=== PATIENT | female | born 1960 | race Caucasian/White ===

== ENCOUNTER 2017-01-25 10:22 | Inpatient (IN) ==
[2017-01-25] MEDS ORDERED: CeFAZolin Pre 2,000 MG/100 ML 2,000 MG/100 ML BAG IVPB ONE (10:37)
[2017-01-25] MEDS ORDERED: Lidocaine -MPF 1% 2 ML VIAL ID ONE (10:37)
[2017-01-25] MEDS ORDERED: Metoclopramide 10 MG/2 ML VIAL IVP ONE (10:38)
[2017-01-25] MEDS ORDERED: *HR* Labetalol 100 MG/20 ML MDV IVP PRN (10:38)
[2017-01-25] MEDS ORDERED: Famotidine 20 MG/2 ML VIAL IVP ONE (10:38)
[2017-01-25] MEDS ORDERED: *HR* Promethazine 25 MG/ML VIAL IVP PRN (10:38)
[2017-01-25] MEDS ORDERED: Acetaminophen IV 1,000 MG/100 ML INFUS..BTL IVPB ONE (10:40)
[2017-01-25] MEDS ORDERED: Gabapentin 300 MG CAPSULE PO STA (10:40)
--- NOTE | 2017-01-25 10:44 | Anesthesia Evaluation PreOp ---
Date of Encounter: 01/25/17 Time of Encounter: 10:41 - Past History Planned Operation: Antrectomy/Gastric resection re: Carcinoid Cardiac History: HTN (maintained on Norvasc, Lisinopril), Hyperlipidemia ( borderline - no meds) Pulmonary History: Smoker (upto 2ppd x 40yrs), COPD (maintained on Symbicort, Advair) SCHEDULE PLANNING MANAGER History: TIA ( incidental findings no S/Sx), Other (Multiple Sclerosis/ White matter changes [Dx age 26] but does not follow-up w/Neurology for Tx, Hx of Anxiety/Depression maintained on Escitalopram, Chronic Back Pain maintained on Gabapentin) Other Medical History: Other (Stomach Ca) Anesthesia History: No Prior Anesthetic Complications, Past Anesthesia (L-wrist ORIF 02/2015, L-Total Shoulder 1995,) Alcohol Use: rarely Drug use: none Medications and Allergies EPINEPHrine [Epipen] 0.3 mg IJ ONCE PRN 05/09/16 [History] Amlodipine Besylate 10 mg PO DAILY #30 tablet 10/10/16 [Rx] Budesonide/Formoterol 160/4.5 [Symbicort 160/4.5] 2 puff IH BIDR #1 inhaler [Rx] Ciprofloxacin [Cipro] 500 mg PO BID #10 tablet 10/10/16 [Rx] Diazepam [Valium] 10 mg PO TID #15 tablet 10/10/16 [Rx] Gabapentin [Neurontin] 800 mg PO TID #30 tablet 10/10/16 [Rx] Montelukast [Singulair] 10 mg PO DAILY PRN #30 tablet 10/10/16 [Rx] Omeprazole [PriLOSEC] 20 mg PO BID #60 capsule.dr 10/10/16 [Rx] Oxycodone HCl 20 mg PO Q6H PRN #10 tablet 10/10/16 [Rx] Ropinirole HCl [Requip] 0.5 mg PO HS #30 tablet 10/10/16 [Rx] Sucralfate [Carafate] 1 gm PO 0730,1630 #120 tablet 10/10/16 [Rx] Allergies No Known Allergies Allergy (Verified 10/08/16 14:28) - Meds/Allergy Pre-op Review Medications Reviewed: Yes Allergies Reviewed: Yes Beta Blockers on Current Med List: No Anesthesia Results - Labs Laboratory Tests 11/27/16 01/16/17 01/16/17 07:15 12:15 12:15 WBC 7.0 Hgb 13.3 Hct 41.4 Plt Count 177 Sodium 139 Potassium 4.2 Chloride 103 Carbon Dioxide 26 BUN 7 Creatinine 0.74 Est GFR (Non-Af Amer) > 60 Glucose 79 - Imaging EKG: image reviewed (96bpm SR) Anesthesia Exam O2 Sat Height 1.63 m Height 1.63 m Weight 53.977 kg Weight 53.977 kg O2 Sat by Pulse Oximetry 95 Vital Signs Temp Pulse Resp BP Pulse Ox 98.0 F 98 18 162/70 95 01/25/17 10:39 01/25/17 10:39 01/25/17 10:39 01/25/17 10:39 01/25/17 10:39 Height: 5'4" Weight: 119# BMI = 19 - HEENT Pupil (Motor): Pupils equal, EOMI Mallampati: II Teeth: Edentulous Denture Type: Upper: Complete, Lower: Complete Oral Opening: Greater than 3 - SCHEDULE PLANNING MANAGER LOC: Oriented SCHEDULE PLANNING MANAGER Motor: Normal RUE, Normal LUE, Normal RLE, Normal LLE, Normal Face SCHEDULE PLANNING MANAGER Sensory: Normal: RUE, LUE, RLE, LLE, Face - Cardiac Rhythm: Regular Murmur: None JVD: No - Pulmonary Breath Sounds: bilateral Clear Respiratory Effort: Symmetrical Anesthesia Assess/Plan ASA Score: 3 (Stomach Ca, HTN, Chol, Smoker, COPD, Chronic Pain, Multiple Sclerosis) Modified [place] Scale for Level of Consciousness: Cooperative, oriented, and tranquil Anesthetic Plan: General Monitoring Plan: Standard Monitors Recovery Plan: PACU Anes Supervising Prov Stmt: Pt seen/evaluated, R&B Discussed, questions answered and consent obtained. Michelle Fam MD
[2017-01-25] MEDS ORDERED: Ringers Solution, Lactated 1,000 ML IVC SCH (10:45)
[2017-01-25] MEDS ORDERED: cloNIDine HCl 0.1 MG TABLET PO ONE (10:47)
[2017-01-25] MEDS ORDERED: Albuterol 2.5 MG/3 ML NEBULIZER IH ONE (10:49)
[2017-01-25] MEDS ORDERED: Albuterol 2.5 MG/3 ML NEBULIZER ONE (10:55)
[2017-01-25] MEDS ORDERED: *HR* Rocuronium Bromide 50 MG/5 ML VIAL ONE ×2 (10:57→12:32)
[2017-01-25] MEDS ORDERED: *HR* Propofol 200 MG/20 ML VIAL IVP ONE (10:58)
[2017-01-25] MEDS ORDERED: *HR* Midazolam HCl 2 MG/2 ML VIAL ONE (10:58)
[2017-01-25] MEDS ORDERED: Lidocaine -MPF 2% 2 ML VIAL ONE (10:58)
[2017-01-25] MEDS ORDERED: *HR* FentaNYL (PF) 100 MCG/2 ML VIAL ONE (10:58)
--- NOTE | 2017-01-25 11:19 | History & Physical Report ---
Date of Encounter: 01/25/17 Time of Encounter: 11:20 24 Hour HP Update - Instructions Instructions: If the History and Physical is less than 30 days old and was completed prior to A.M. admission and or procedure and has NOT been updated on calendar day of procedure please complete this update prior to performing procedure. - Update Patient reports changes in Medical Condition: No Changes in examination, assessment, or condition: No Changes in Medication: No Preop tests/diagnostics Reviewed: Yes Surgery Remains Indicated: Yes Consent for Planned Operative Procedure(s) Verified: Yes - Pre-Operative Checklist Preoperative Checklist Indicated: Yes Prophylactic Antibiotic Ordered: Yes Home Medications Include Beta Polo: No Is VTE Prophylaxis Indicated?: Yes
[2017-01-25] MEDS ORDERED: CefOXitin 1,000 MG VIAL ONE (11:32)
[2017-01-25] MEDS ORDERED: Ketamine *HR* 500 MG/10 ML MDV ONE (12:07)
[2017-01-25] MEDS ORDERED: *HR* HYDROmorphone 2 MG/ML SYRINGE ONE (12:12)
[2017-01-25] MEDS ORDERED: Dexamethasone 4 MG/ML VIAL ONE (13:02)
[2017-01-25] MEDS ORDERED: Ondansetron 4 MG/2 ML VIAL ONE (13:02)
--- NOTE | 2017-01-25 14:11 | Operative Note ---
Date of procedure: 01/25/17 Pre-op diagnosis: Antrum carcinoid tumor Post-op diagnosis: same Procedure: Gastric resection (antrectomy) Billroth I reconstruction Anesthesia: GENET Surgeon: Kaleb Meredith Estimated blood loss (cc): 50 Specimen: Antrum Condition: stable Disposition: PACU Procedure in Detail: After informed consent the patient was taken to major operative suite placed in the supine position and given adequate general endotracheal anesthesia. The abdomen is prepped and draped in sterile fashion utilizing ChloraPrep standard draping techniques. Timeout was taken patient was identified. I made an upper midline incision. I entered the abdominal cavity. There is no evidence of metastatic disease or adenopathy. The liver was completely clear. I performed a wide Claudy maneuver all the way to the inferior vena cava this completely mobilize the duodenum and pancreatic. Since this was a 1 cm carcinoid tumor not seen on MRI or octreotide scan, I decided not to perform a radical antrectomy. I divided the omentum tissue along the greater curvature of the stomach from the pylorus to the end of the antrum using clamps and hemostatic ligatures. Once the greater curvature was completely free completely and in the lesser sac. This allowed me to identify the incision were and moved up about 3-4 cm to allow for complete antrectomy I divided the tissue on the lesser omentum between the pylorus and this identified area on the lesser curvature. Tissue is divided between clamps and hemostatic ligatures. I then made a careful examination further tumor. The tumor was not in the expected location. The tumor was reported to be a few centimeters from the pylorus. It appeared to be 8 cm from the pylorus. I could clearly feel a tumor that correlated with the size at about 15 mm. This was marked. I then performed an antrectomy with a stapling device working from the greater curvature to the middle of the stomach and then angling up onto the lesser curvature with a second staple load. This gave me a good wide margin on the tumor. I then dissected the tissue off the backside of the pylorus and the first 1-1/2 cm of duodenum. The duodenum was then divided just past the pylorus and the specimen passed off the field. I immediately opened the specimen to identify the bleeding carcinoid and this was in the antrectomy specimen about 8 cm from the divided pylorus. Mobility on the greater curvature was excellent. I was able to perform a tension-free handsewn anastomosis. I put a backside layer of seromuscular stitches with 2-0 silk along the staple line all the way to the corner of the greater curvature staple line. I then removed the greater curvature staple line the width of the duodenum and divided staple line at this point area I then performed a mucosal closure with running locking posterior wall and running baseball stitch anterior wall 2-0 chromic. I then performed an anterior wall 2-0 silk seromuscular closure to complete the anastomosis. The remaining staple line was then imbricated with 2-0 silk. This gave an excellent technical result. I pulled a small amount of omentum from the greater curvature across the suture line and sutured this to the duodenum making sure that there would be 0 tension on anastomosis and a cover the suture line with omentum. Total blood loss was 50 mL. The abdomen was irrigated with copious amounts of antibiotic containing solution. Midline was closed with looped 0 PDS and the skin with skin clips. She tolerated the procedure well.
[2017-01-25] MEDS: *HR* HYDROmorphone (PF) 1 MG/ML SYRINGE IVP PRN ×7 (14:30→23:31)
--- NOTE | 2017-01-25 15:11 | Anesthesia Evaluation Post Op ---
Date of Encounter: 01/25/17 Time of Encounter: 15:10 - Vital Signs Vital Signs: Vital Signs/O2 Sat/Glucose, Most Current Temp Pulse Resp BP Pulse Ox 01/25/17 15:05 84 16 126/93 96 01/25/17 14:55 83 18 157/94 96 01/25/17 14:45 97.8 F 87 20 150/93 95 01/25/17 14:35 84 16 162/97 97 01/25/17 14:25 81 18 154/97 97 01/25/17 14:20 86 16 123/86 98 01/25/17 14:15 97.6 F 88 16 134/81 98 - Lungs Lungs: Clear Ascult./Percussion - Airway Airway: Non-obstructed - Cardiovascular Regular Rate - Mental Status Mental Status: Alert & Oriented, Answers Appropriately - Pain Pain Scale: 8 - Nausea Vomiting Nausea Vomiting: Not Present - Hydration Hydration: Ice chips, Alvarez catheter - Discharge PostOp Status: Transfer Patient to floor (no anesthesia complications)
[2017-01-25] MEDS ORDERED: Ondansetron 4 MG/2 ML VIAL IVP PRN (15:35)
[2017-01-25] MEDS ORDERED: 0.9 % Sodium Chloride 1,000 ML ONE (15:40)
[2017-01-25] MEDS: 0.9 % Sodium Chloride 1,000 ML IVC SCH (15:59)
[2017-01-25] MEDS ORDERED: *HR* Heparin 5,000 UNIT/ML VIAL SQ SCH (18:00)
[2017-01-25] MEDS: Nicotine 21 MG PATCH.TD24 TD SCH (19:22)
[2017-01-25] MEDS: *HR* Heparin 5,000 UNIT/ML VIAL SQ SCH (19:22)
[2017-01-25] MEDS: ceFAZolin 2,000 MG in D5% in Water 100 ML IVPB SCH (20:57)
[2017-01-26] MEDS: 0.9 % Sodium Chloride 1,000 ML IVC SCH ×3 (02:33→22:30)
[2017-01-26] MEDS: *HR* HYDROmorphone (PF) 1 MG/ML SYRINGE IVP PRN ×19 (02:34→23:25)
[2017-01-26] MEDS: ceFAZolin 2,000 MG in D5% in Water 100 ML IVPB SCH (04:07)
[2017-01-26 04:43] LABS: Basophils % 0.4 %; Hematocrit 37.5 % (35.3-44.9); Hemoglobin 12.1 g/dL (11.5-15.4); Immature Granulocytes % 0.4 % (0-4); Lymphocytes # 1.7 K/mcL (0.6-4.6); Lymphocytes % 17.2 %; Mean Corpuscular HGB Conc 32.3 g/dL (31.6-35.5); Mean Corpuscular Hemoglobin 28.4 pg (28.0-33.3); Mean Platelet Volume 10.4 fL (9.4-12.4); Monocytes # 1.2 K/mcL (0.0-1.3); Monocytes % 11.7 %; Neutrophils # 6.9 K/mcL (1.6-8.9); Platelet Count 178 K/mcL (140-400); Red Blood Count 4.26 M/mcL (3.82-4.97); Red Cell Distribution Width 19.8 % (11.5-14.5); Segmented Neutrophils % 70.3 %
[2017-01-26 04:57] LABS: BUN/Creatinine Ratio 9 (6-26); Blood Urea Nitrogen 6 mg/dL (7-20); Calcium 8.4 mg/dL (8.6-10.8); Carbon Dioxide 25 mEq/L (19-29); Chloride 106 mEq/L (98-109); Glucose 97 mg/dL (70-99); Osmolality,Calculated 292 (280-300); Potassium 4.4 mEq/L (3.5-4.5); Sodium 142 mEq/L (136-145); eGFR For African Americans > 60 (> 60); eGFR For Non-African Americans > 60 (> 60)
[2017-01-26] MEDS: *HR* Heparin 5,000 UNIT/ML VIAL SQ SCH ×2 (05:46→16:05)
[2017-01-26] MEDS: Nicotine 21 MG PATCH.TD24 TD SCH (07:15)
[2017-01-26] MEDS: *HR* LORazepam 2 MG/ML VIAL IVP PRN ×3 (07:26→21:23)
--- NOTE | 2017-01-26 13:15 | General Surgery Progress Note ---
Date of Encounter: 01/26/17 Time of Encounter: 07:20 - Assessment and Plan (1) Neuroendocrine tumor Current Visit: No Status: Acute Postoperative day #1 from an antrectomy and Billroth I reconstruction For neuroendocrine tumor of the stomach. She is experiencing increased pain due to narcotic chronic use and benzodiazepine chronic use. We will Try to continue to balance increased narcotic and benzodiazepine doses against respiratory depression Stable postoperative antrectomy Subjective Narrative: The patient is seen and evaluated on morning rounds. She is complaining of pain , however this is expected. She is on chronic narcotic pain medicine at home as well as chronic benzodiazepine which will make control of her perioperative pain more difficult. We will balance between controlling her pain and suppressing her respiratory drive the incision is clean and dry. She is otherwise stable nasogastric is functioning normally with blood-tinged bilious material in the canister Objective Vital Signs - Last 8 Hours Temp Pulse Resp BP Pulse Ox 01/26/17 11:57 99.2 F 99 16 123/77 96 01/26/17 06:58 99 F 99 14 120/75 93 01/26/17 05:35 98.7 F 72 18 130/72 93 Intake and Output 01/25/17 01/26/17 01/26/17 23:59 07:59 15:59 Intake Total 100 / 100 1100 / 1100 1000 / 1000 Output Total 575 / 575 500 / 500 Balance -475 / -475 600 / 600 1000 / 1000 Intake: IV Fluids 100 / 100 1100 / 1100 1000 / 1000 0.9 % Sodium Chloride 1, 1000 / 1000 1000 / 1000 000 ML @ 75 mls/hr IVC . [id number] [facility] Rx#: [id number] Ancef 2,000 MG In 100 / 100 100 / 100 Dextrose 5% 100 ML @ 200 mls/hr IVPB Q8H [facility] Rx#: [id number] Oral 0 / 0 Output: Catheter 575 / 575 300 / 300 Gastric Drainage 200 / 200 Other: Meal NPO Weight 53.8 kg Blood Glucose* 118 94 Patient Weight 01/26/17 23:59 Weight 53.8 kg - General physical appearance well developed, well nourished, moderate pain - Respiratory normal expansion, normal respiratory effort, clear to percussion, clear to auscultation - Cardiovascular Cardiovascular exam: Present: RRR, distant heart sounds - Abdomen Abdomen: Present: tender (No bowel sounds yet. Moderate incisional pain.) - Incision Incision: Present: clean and dry - Labs 01/26/17 04:20 01/26/17 04:20 Diabetes panel 01/26/17 Range/Units 04:20 Sodium 142 (136-145) mEq/L Potassium 4.4 (3.5-4.5) mEq/L Chloride 106 (98-109) mEq/L Carbon Dioxide 25 (19-29) mEq/L BUN 6 L (7-20) mg/dL Creatinine 0.67 (0.57-1.11) mg/dL Glucose 97 (70-99) mg/dL Calcium 8.4 L (8.6-10.8) mg/dL Calcium panel 01/26/17 Range/Units 04:20 Calcium 8.4 L (8.6-10.8) mg/dL Pituitary panel 01/26/17 Range/Units 04:20 Sodium 142 (136-145) mEq/L Potassium 4.4 (3.5-4.5) mEq/L Chloride 106 (98-109) mEq/L Carbon Dioxide 25 (19-29) mEq/L BUN 6 L (7-20) mg/dL Creatinine 0.67 (0.57-1.11) mg/dL Glucose 97 (70-99) mg/dL Calcium 8.4 L (8.6-10.8) mg/dL Adrenal panel 01/26/17 Range/Units 04:20 Sodium 142 (136-145) mEq/L Potassium 4.4 (3.5-4.5) mEq/L Chloride 106 (98-109) mEq/L Carbon Dioxide 25 (19-29) mEq/L BUN 6 L (7-20) mg/dL Creatinine 0.67 (0.57-1.11) mg/dL Glucose 97 (70-99) mg/dL Calcium 8.4 L (8.6-10.8) mg/dL - VTE Documentation of Mechanical Device: Intermittent pneumatic compression device Consult Discharge Plan - Plan Referrals: Kaleb Meredith MD [Partnered Physician] - 02/06/17 11:00 am NO,PCP [Primary Care Provider] -
[2017-01-27] MEDS: *HR* HYDROmorphone (PF) 1 MG/ML SYRINGE IVP PRN ×16 (01:52→22:27)
[2017-01-27] MEDS: *HR* Heparin 5,000 UNIT/ML VIAL SQ SCH ×2 (05:14→17:19)
[2017-01-27] MEDS: *HR* LORazepam 2 MG/ML VIAL IVP PRN (09:03)
[2017-01-27] MEDS: Nicotine 21 MG PATCH.TD24 TD SCH (09:05)
[2017-01-27 11:35] LABS: Basophils # 0.1 K/mcL (0.0-0.2); Basophils % 0.5 %; Eosinophils # 0.1 K/mcL (0.0-0.6); Eosinophils % 1.4 %; Hematocrit 34.7 % (35.3-44.9); Immature Granulocytes % 0.4 % (0-4); Lymphocytes # 1.6 K/mcL (0.6-4.6); Lymphocytes % 16.4 %; Mean Corpuscular HGB Conc 31.7 g/dL (31.6-35.5); Mean Corpuscular Hemoglobin 28.6 pg (28.0-33.3); Mean Corpuscular Volume 90.4 fL (83.0-100.0); Mean Platelet Volume 10.3 fL (9.4-12.4); Monocytes # 1.2 K/mcL (0.0-1.3); Monocytes % 12.4 %; Neutrophils # 6.9 K/mcL (1.6-8.9); Platelet Count 137 K/mcL (140-400); Red Blood Count 3.84 M/mcL (3.82-4.97); Red Cell Distribution Width 19.8 % (11.5-14.5); Segmented Neutrophils % 68.9 %
[2017-01-27 11:51] LABS: BUN/Creatinine Ratio 7 (6-26); Calcium 8.9 mg/dL (8.6-10.8); Carbon Dioxide 26 mEq/L (19-29); Chloride 107 mEq/L (98-109); Glucose 92 mg/dL (70-99); Magnesium 1.5 mg/dL (1.6-2.6); Osmolality,Calculated 289 (280-300); Phosphorous 2.5 mg/dL (2.3-4.7); Sodium 141 mEq/L (136-145); eGFR For African Americans > 60 (> 60); eGFR For Non-African Americans > 60 (> 60)
[2017-01-27 11:56] LABS: Blood Urea Nitrogen 4 mg/dL (7-20)
[2017-01-27] MEDS: 0.9 % Sodium Chloride 1,000 ML IVC SCH (12:21)
[2017-01-27] MEDS ORDERED: Magnesium Sulfate 2 GM in D5% in Water 100 ML IVPB ONE (17:29)
--- NOTE | 2017-01-27 17:29 | General Surgery Progress Note ---
Date of Encounter: 01/27/17 Time of Encounter: 10:00 - Assessment and Plan (1) H/O Billroth I operation Current Visit: Yes Status: Acute s/p hemigastrectomy and B1 for carcinoid await return bowel function ngt came out overnight, messaged Dr Meredith and he ok'd replacement continue NGT to LIWS ivf hydration prn pain control antiemetics as needed OOB and ambulate gi/dvt prophylaxis (2) Alcohol abuse Current Visit: No Status: Chronic (3) Neuroendocrine tumor Current Visit: No Status: Acute (4) Hypomagnesemia Current Visit: Yes Status: Acute replaced, recheck labs in am Subjective Patient reports: no new complaints, feels better, still having pain, pain is less, no flatus, no bowel movement, afebrile, other (ngt fell out overnight) Objective Vital Signs - Last 8 Hours Temp Pulse Resp BP Pulse Ox 01/27/17 15:37 98.9 F 85 18 157/90 96 01/27/17 10:59 98.6 F 98 16 158/77 94 Intake and Output 01/27/17 01/27/17 01/27/17 07:59 15:59 23:59 Intake Total 688 / 688 312 / 312 681 / 681 Output Total 675 / 675 300 / 300 Balance 681 / 681 Intake: IV Fluids 688 / 688 312 / 312 681 / 681 0.9 % Sodium Chloride 1, 688 / 688 312 / 312 681 / 681 000 ML @ 75 mls/hr IVC . [id number] [facility] Rx#: [id number] Oral 0 / 0 0 / 0 0 / 0 Output: Catheter 550 / 550 300 / 300 Gastric Drainage 125 / 125 Other: Meal NPO NPO Percent of Meal Consumed 0% Weight 53.9 kg Blood Glucose* 100 93 83 Patient Weight 01/27/17 23:59 Weight 53.9 kg - General physical appearance well developed, well nourished, no distress - Eyes PERRL, normal ocular movement - ENT normal mucosa, normocephalic - Neck Neck exam: trachea midline - Respiratory normal expansion, normal respiratory effort - Cardiovascular Cardiovascular exam: Present: RRR - Abdomen Abdomen: Present: soft, tender (appropriate post op tenderness). Absent: bowel sounds present - Incision Incision: Present: clean and dry, intact - Integumentary no rash, no growths - Neurologic CN 2-12 grossly intact, normal coordination - Musculoskeletal normal posture - Psychiatric oriented to time, oriented to person, memory intact - Labs 01/27/17 11:27 01/27/17 11:27 Vital Signs Temp Pulse Resp BP Pulse Ox 01/27/17 15:37 98.9 F 85 18 157/90 96 01/27/17 10:59 98.6 F 98 16 158/77 94 01/27/17 07:25 98.6 F 104 16 133/83 93 01/27/17 04:03 100.0 F H 103 14 138/82 95 01/26/17 19:13 99.6 F 103 14 156/82 92 Intake and Output 01/27/17 01/27/17 01/27/17 07:59 15:59 23:59 Intake Total 688 / 688 312 / 312 681 / 681 Output Total 675 / 675 300 / 300 Balance 12 681 / 681 Intake: IV Fluids 688 / 688 312 / 312 681 / 681 0.9 % Sodium Chloride 1, 688 / 688 312 / 312 681 / 681 000 ML @ 75 mls/hr IVC . [id number] [facility] Rx#: [id number] Oral 0 / 0 0 / 0 0 / 0 Output: Catheter 550 / 550 300 / 300 Gastric Drainage 125 / 125 Other: Meal NPO NPO Percent of Meal Consumed 0% Weight 53.9 kg Blood Glucose* 100 93 83 Patient Weight 01/27/17 23:59 Weight 53.9 kg Short CBC 01/27/17 Range/Units 11:27 WBC 10.0 (4.3-11.1) K/mcL Hgb 11.0 L (11.5-15.4) g/dL Hct 34.7 L (35.3-44.9) % Plt Count 137 L (140-400) K/mcL Neutrophils # 6.9 (1.6-8.9) K/mcL BMP 01/27/17 Range/Units 11:27 Sodium 141 (136-145) mEq/L Potassium 4.0 (3.5-4.5) mEq/L Chloride 107 (98-109) mEq/L Carbon Dioxide 26 (19-29) mEq/L BUN 4 L (7-20) mg/dL Creatinine 0.58 (0.57-1.11) mg/dL Glucose 92 (70-99) mg/dL Calcium 8.9 (8.6-10.8) mg/dL - VTE Documentation of Mechanical Device: Intermittent pneumatic compression device Consult Discharge Plan - Plan Referrals: Kaleb Meredith MD [Partnered Physician] - 02/06/17 11:00 am NO,PCP [Primary Care Provider] -
[2017-01-28] MEDS: *HR* HYDROmorphone (PF) 1 MG/ML SYRINGE IVP PRN ×16 (00:33→22:34)
[2017-01-28] MEDS: 0.9 % Sodium Chloride 1,000 ML IVC SCH ×2 (01:58→16:50)
[2017-01-28] MEDS: *HR* Heparin 5,000 UNIT/ML VIAL SQ SCH ×2 (05:01→16:50)
[2017-01-28 05:12] LABS: Basophils # 0.1 K/mcL (0.0-0.2); Basophils % 0.5 %; Eosinophils # 0.4 K/mcL (0.0-0.6); Eosinophils % 3.7 %; Hematocrit 34.6 % (35.3-44.9); Hemoglobin 11.1 g/dL (11.5-15.4); Immature Granulocytes % 0.5 % (0-4); Lymphocytes # 1.7 K/mcL (0.6-4.6); Mean Corpuscular HGB Conc 32.1 g/dL (31.6-35.5); Mean Corpuscular Hemoglobin 29.2 pg (28.0-33.3); Mean Corpuscular Volume 91.1 fL (83.0-100.0); Mean Platelet Volume 11.7 fL (9.4-12.4); Monocytes # 1.1 K/mcL (0.0-1.3); Monocytes % 11.5 %; Neutrophils # 6.4 K/mcL (1.6-8.9); Platelet Count 134 K/mcL (140-400); Red Cell Distribution Width 19.1 % (11.5-14.5); Segmented Neutrophils % 65.8 %
[2017-01-28 05:30] LABS: BUN/Creatinine Ratio 7 (6-26); Carbon Dioxide 23 mEq/L (19-29); Chloride 105 mEq/L (98-109); Glucose 73 mg/dL (70-99); Magnesium 1.6 mg/dL (1.6-2.6); Osmolality,Calculated 287 (280-300); Potassium 3.6 mEq/L (3.5-4.5); Sodium 141 mEq/L (136-145); eGFR For African Americans > 60 (> 60); eGFR For Non-African Americans > 60 (> 60)
[2017-01-28 05:31] LABS: Blood Urea Nitrogen 4 mg/dL (7-20)
[2017-01-28] MEDS: Nicotine 21 MG PATCH.TD24 TD SCH (07:25)
--- NOTE | 2017-01-28 10:27 | General Surgery Progress Note ---
Date of Encounter: 01/28/17 Time of Encounter: 10:25 - Assessment and Plan (1) H/O Billroth I operation Current Visit: Yes Status: Acute POD # 3 Gastric resection (antrectomy) Billroth I reconstruction with Dr. Meredith Continue NG tube NPO IV fluids Supportive care/pain control Increase activity as tolerated IS every 1 hour while awake D/C dahl catheter (2) Neuroendocrine tumor Current Visit: No Status: Acute POD # 3 Gastric resection (antrectomy) Billroth I reconstruction with Dr. Meredith Continue NG tube NPO IV fluids Supportive care/pain control Increase activity as tolerated IS every 1 hour while awake D/C dahl catheter Pathology pending (3) Alcohol abuse Current Visit: No Status: Chronic (4) DVT prophylaxis Current Visit: Yes Status: Acute Continue heparin 5,000 units SQ twice daily for DVT prophylaxis Subjective Patient reports: no new complaints, still having pain, pain is less, no flatus, no bowel movement, afebrile Objective Vital Signs - Last 8 Hours Temp Pulse Resp BP Pulse Ox 01/28/17 06:34 97.5 F L 103 17 149/98 95 01/28/17 04:36 97.8 F 97 18 168/90 92 Intake and Output 01/27/17 01/28/17 01/28/17 23:59 07:59 15:59 Intake Total 1000 / 1000 0 / 0 0 / 0 Output Total 250 / 250 1150 / 1150 Balance 750 / 750 -1150 / -1150 0 / 0 Intake: IV Fluids 1000 / 1000 0.9 % Sodium Chloride 1, 1000 / 1000 000 ML @ 75 mls/hr IVC . [id number] [facility] Rx#: [id number] Oral 0 / 0 0 / 0 0 / 0 Output: Urine 0 / 0 Catheter 150 / 150 700 / 700 Gastric Drainage 100 / 100 450 / 450 Other: Meal NPO NPO Percent of Meal Consumed 0% Blood Glucose* 83 71 - General physical appearance well developed, well nourished, no distress - Eyes normal ocular movement - ENT normal mucosa, atraumatic, normocephalic - Neck Neck exam: trachea midline - Respiratory normal respiratory effort, clear to auscultation - Cardiovascular Cardiovascular exam: Present: RRR - Abdomen Abdomen: Present: soft, tender (expected post-operative tenderness), wound (NG tube to LIWS with bilious drainage noted (450ml of drainage noted since midnight )). Absent: bowel sounds present, guarding - Incision Incision: Present: clean and dry, intact - Integumentary no rash, no abnormal pigmentation - Neurologic CN 2-12 grossly intact - Musculoskeletal normal gait, normal posture - Psychiatric oriented to time, oriented to person, oriented to place, speech is normal, memory intact - Labs 01/28/17 04:33 01/28/17 04:33 Diabetes panel 01/27/17 01/28/17 Range/Units 11:27 04:33 Sodium 141 141 (136-145) mEq/L Potassium 4.0 3.6 (3.5-4.5) mEq/L Chloride 107 105 (98-109) mEq/L Carbon Dioxide 26 23 (19-29) mEq/L BUN 4 L 4 L (7-20) mg/dL Creatinine 0.58 0.59 (0.57-1.11) mg/dL Glucose 92 73 (70-99) mg/dL Calcium 8.9 9.0 (8.6-10.8) mg/dL Calcium panel 01/27/17 01/28/17 Range/Units 11:27 04:33 Calcium 8.9 9.0 (8.6-10.8) mg/dL Phosphorus 2.5 (2.3-4.7) mg/dL Pituitary panel 01/27/17 01/28/17 Range/Units 11:27 04:33 Sodium 141 141 (136-145) mEq/L Potassium 4.0 3.6 (3.5-4.5) mEq/L Chloride 107 105 (98-109) mEq/L Carbon Dioxide 26 23 (19-29) mEq/L BUN 4 L 4 L (7-20) mg/dL Creatinine 0.58 0.59 (0.57-1.11) mg/dL Glucose 92 73 (70-99) mg/dL Calcium 8.9 9.0 (8.6-10.8) mg/dL Adrenal panel 01/27/17 01/28/17 Range/Units 11:27 04:33 Sodium 141 141 (136-145) mEq/L Potassium 4.0 3.6 (3.5-4.5) mEq/L Chloride 107 105 (98-109) mEq/L Carbon Dioxide 26 23 (19-29) mEq/L BUN 4 L 4 L (7-20) mg/dL Creatinine 0.58 0.59 (0.57-1.11) mg/dL Glucose 92 73 (70-99) mg/dL Calcium 8.9 9.0 (8.6-10.8) mg/dL - VTE Documentation of Mechanical Device: Intermittent pneumatic compression device Consult Discharge Plan - Plan Referrals: Kaleb Meredith MD [Partnered Physician] - 02/06/17 11:00 am NO,PCP [Primary Care Provider] - - Attending Attestation I examined this patient and my medical decision-making was reviewed with the BACK STRIP MACHINE OPERATOR/PA/Advanced Practice Nurse/Resident Physician. I agree with the documented findings, disposition and treatment plan as described except to the extent set forth below. I examined this patient and my medical decision-making was reviewed with the BACK STRIP MACHINE OPERATOR/PA/Advanced Practice Nurse/Resident Physician. I agree with the documented findings, disposition and treatment plan as described except to the extent set forth below.
[2017-01-29] MEDS: *HR* HYDROmorphone (PF) 1 MG/ML SYRINGE IVP PRN ×12 (00:09→23:10)
[2017-01-29 05:40] LABS: Basophils # 0.1 K/mcL (0.0-0.2); Basophils % 0.7 %; Eosinophils # 0.5 K/mcL (0.0-0.6); Eosinophils % 6.2 %; Hematocrit 34.2 % (35.3-44.9); Hemoglobin 10.6 g/dL (11.5-15.4); Immature Granulocytes % 0.3 % (0-4); Lymphocytes # 1.5 K/mcL (0.6-4.6); Mean Corpuscular Volume 90.2 fL (83.0-100.0); Mean Platelet Volume 10.5 fL (9.4-12.4); Monocytes # 0.9 K/mcL (0.0-1.3); Monocytes % 11.9 %; Neutrophils # 4.4 K/mcL (1.6-8.9); Platelet Count 137 K/mcL (140-400); Red Blood Count 3.79 M/mcL (3.82-4.97); Red Cell Distribution Width 18.4 % (11.5-14.5); Segmented Neutrophils % 59.9 %
[2017-01-29] MEDS: 0.9 % Sodium Chloride 1,000 ML IVC SCH ×2 (08:06→22:32)
[2017-01-29] MEDS: *HR* Heparin 5,000 UNIT/ML VIAL SQ SCH ×2 (08:07→18:07)
[2017-01-29] MEDS: Nicotine 21 MG PATCH.TD24 TD SCH (08:08)
--- NOTE | 2017-01-29 08:18 | General Surgery Progress Note ---
Date of Encounter: 01/29/17 Time of Encounter: 07:10 - Assessment and Plan (1) Neuroendocrine tumor Current Visit: No Status: Acute Postoperative day #1 from an antrectomy and Billroth I reconstruction For neuroendocrine tumor of the stomach. She is experiencing increased pain due to narcotic chronic use and benzodiazepine chronic use. We will Try to continue to balance increased narcotic and benzodiazepine doses against respiratory depression Stable postoperative antrectomy 01/29/2017 The patient is improved. Pain control is better. Her incision is clean and dry. Nasogastric tube drainage is falling off. We will put her nasogastric tube to a Alvarez bag provide a vent. She will be started on Reglan. Hopefully we can get the nasogastric tube out later this afternoon. Subjective Narrative: Pain control is better. Ng Drainage decreased and she has bowel sounds. We will plan on getting her nasogastric tube to a Alvarez bag to allow any excess drainage to prevent she will also be started on Reglan. Overall her condition is tremendously improved Objective Vital Signs - Last 8 Hours Temp Pulse Resp BP Pulse Ox 01/29/17 08:09 98.2 F 79 16 168/82 96 01/29/17 03:52 97.5 F L 83 16 155/87 94 01/29/17 00:52 98.6 F 80 16 157/82 94 Intake and Output 01/28/17 01/29/17 01/29/17 23:59 07:59 15:59 Intake Total 0 / 0 1000 / 1000 Output Total 0 / 0 350 / 350 1100 / 1100 Balance 0 / 0 650 / 650 -1100 / -1100 Intake: IV Fluids 1000 / 1000 0.9 % Sodium Chloride 1, 1000 / 1000 000 ML @ 75 mls/hr IVC . [id number] [facility] Rx#: [id number] Oral 0 / 0 0 / 0 Output: Urine 0 / 0 350 / 350 500 / 500 Gastric Drainage 600 / 600 Other: Blood Glucose* 73 60 - General physical appearance well developed, well nourished - Respiratory normal expansion, normal respiratory effort, clear to percussion, clear to auscultation - Cardiovascular Cardiovascular exam: Present: RRR, no murmurs/rubs/gallops - Abdomen Abdomen: Present: bowel sounds present - Incision Incision: Present: clean and dry - Psychiatric oriented to time, oriented to person, oriented to place, speech is normal, memory intact - Labs 01/29/17 05:06 01/28/17 04:33 - VTE Documentation of Mechanical Device: Intermittent pneumatic compression device Consult Discharge Plan - Plan Referrals: Kaleb Meredith MD [Partnered Physician] - 02/06/17 11:00 am NO,PCP [Primary Care Provider] -
[2017-01-29] MEDS: Metoclopramide 10 MG/2 ML VIAL IVP SCH ×3 (09:36→23:11)
[2017-01-30] MEDS: *HR* HYDROmorphone (PF) 1 MG/ML SYRINGE IVP PRN ×7 (02:37→20:22)
[2017-01-30] MEDS: *HR* Heparin 5,000 UNIT/ML VIAL SQ SCH ×2 (06:02→17:20)
--- NOTE | 2017-01-30 07:34 | General Surgery Progress Note ---
Date of Encounter: 01/30/17 Time of Encounter: 07:30 - Assessment and Plan (1) Neuroendocrine tumor Current Visit: No Status: Acute Postoperative day #1 from an antrectomy and Billroth I reconstruction For neuroendocrine tumor of the stomach. She is experiencing increased pain due to narcotic chronic use and benzodiazepine chronic use. We will Try to continue to balance increased narcotic and benzodiazepine doses against respiratory depression Stable postoperative antrectomy 01/29/2017 The patient is improved. Pain control is better. Her incision is clean and dry. Nasogastric tube drainage is falling off. We will put her nasogastric tube to a Alvarez bag provide a vent. She will be started on Reglan. Hopefully we can get the nasogastric tube out later this afternoon. 01/30/2017 The patient is improved. Pain control is better. I am going to go ahead and start her on Percocet since she has no nausea or vomiting with oral intake. She lacks bowel sounds in I am not going to advance her volume restricted clear liquid diet until she has more bowel activity. We will try a Fleet's enema today. Overall progress is on schedule. Pathology is pending. Subjective Narrative: The patient has no nausea and no vomiting. She is currently on 300 mL per shift of clear liquids. She really does not have much in the way bowel sounds. And I am reluctant to advance her diet. We will go with a fleets enema today to assist with bowel movements. We will transition to oral pain medicine. She is to ambulate. Objective Vital Signs - Last 8 Hours Temp Pulse Resp BP Pulse Ox 01/30/17 07:05 96 01/30/17 06:52 98.5 F 100 18 166/88 96 01/30/17 05:10 98.8 F 97 18 171/90 97 01/30/17 00:51 98.7 F 94 14 172/91 96 Intake and Output 01/29/17 01/29/17 01/30/17 15:59 23:59 07:59 Intake Total 120 / 120 1060 / 1060 240 / 240 Output Total 1450 / 1450 0 / 0 Balance -1330 / -1330 1060 / 1060 240 / 240 Intake: IV Fluids 1000 / 1000 0.9 % Sodium Chloride 1, 1000 / 1000 000 ML @ 75 mls/hr IVC . [id number] DELISA Rx#: [id number] Oral 120 / 120 60 / 60 240 / 240 Output: Urine 850 / 850 0 / 0 Gastric Drainage 600 / 600 Other: Meal NPO breakfast # Voids 1 Blood Glucose* 67 70 79 - General physical appearance well developed, well nourished - Respiratory normal expansion, normal respiratory effort, clear to percussion, clear to auscultation - Cardiovascular Cardiovascular exam: Present: RRR, no murmurs/rubs/gallops - Abdomen Abdomen: Present: soft, non tender (Very few bowel sounds) - Incision Incision: Present: clean and dry - Neurologic normal coordination, normal sensation - Psychiatric oriented to time, oriented to person, oriented to place, speech is normal, memory intact - Labs 01/29/17 05:06 01/28/17 04:33 - VTE Documentation of Mechanical Device: Intermittent pneumatic compression device Consult Discharge Plan - Plan Referrals: Kaleb Meredith MD [Partnered Physician] - 02/06/17 11:00 am NO,PCP [Non-Partnered Physician] -
[2017-01-30] MEDS: Metoclopramide 10 MG/2 ML VIAL IVP SCH (07:36)
[2017-01-30] MEDS: Nicotine 21 MG PATCH.TD24 TD SCH (07:37)
[2017-01-30] MEDS: 0.9 % Sodium Chloride 1,000 ML IVC SCH (10:22)
[2017-01-30] MEDS: *HR* OxyCODONE/APAP 10/325 TABLET PO PRN (11:36)
[2017-01-30] MEDS: *HR* LORazepam 2 MG/ML VIAL IVP PRN (20:23)
[2017-01-31] MEDS: 0.9 % Sodium Chloride 1,000 ML IVC SCH ×2 (01:09→01:15)
[2017-01-31] MEDS: *HR* HYDROmorphone (PF) 1 MG/ML SYRINGE IVP PRN ×2 (02:10→05:59)
[2017-01-31] MEDS: *HR* Heparin 5,000 UNIT/ML VIAL SQ SCH (05:51)
[2017-01-31] MEDS: Nicotine 21 MG PATCH.TD24 TD SCH (08:02)
[2017-01-31] MEDS: *HR* OxyCODONE/APAP 10/325 TABLET PO PRN (08:02)
[2017-01-31 11:27] VITALS: BP 168/91
--- NOTE | 2017-01-31 11:28 | Discharge Summary ---
<Valerie Storm - Last Filed: 01/31/17 11:25> Date of Encounter: 01/31/17 Time of Encounter: 11:20 - Discharge Diagnosis (1) H/O Billroth I operation Priority: Primary Status: Acute (2) Neuroendocrine tumor Priority: Primary Status: Acute (3) Alcohol abuse Priority: Secondary Status: Chronic (4) DVT prophylaxis Priority: Secondary Status: Acute - Discharge Medications Prescriptions: Docusate [Colace] 100 mg PO BID #30 capsule Omeprazole 20 mg PO DAILY #30 tablet. Oxycodone HCl 15 mg PO Q6H PRN #30 tablet PRN Reason: Moderate Pain Home Medications: EPINEPHrine [Epipen] 0.3 mg IJ ONCE PRN 05/09/16 [History] Budesonide/Formoterol 160/4.5 [Symbicort 160/4.5] 2 puff IH BIDR #1 inhaler [Rx] Diazepam [Valium] 10 mg PO TID #15 tablet 10/10/16 [Rx] Gabapentin [Neurontin] 800 mg PO TID #30 tablet 10/10/16 [Rx] Montelukast [Singulair] 10 mg PO DAILY PRN #30 tablet 10/10/16 [Rx] Amlodipine Besylate 10 mg PO DAILY PRN 01/25/17 [History] Escitalopram [Lexapro] 10 mg PO DAILY 01/25/17 [History] Fluticasone/Salmeterol [Advair 250-50 Diskus] 1 each IH BID 01/25/17 [History] Lisinopril [Zestril] 20 mg PO DAILY 01/25/17 [History] Omeprazole [PriLOSEC] 20 mg PO DAILY 01/25/17 [History] Docusate [Colace] 100 mg PO BID #30 capsule 01/31/17 [Rx] Omeprazole 20 mg PO DAILY #30 tablet. 01/31/17 [Rx] Oxycodone HCl 15 mg PO Q6H PRN #30 tablet 01/31/17 [Rx] Allergies/Adverse Reactions: Allergies No Known Allergies Allergy (Verified 01/25/17 11:02) General Surgery Exam Initial Vital Signs Temp Pulse Resp BP Pulse Ox 98.0 F 98 18 162/70 95 01/25/17 10:39 01/25/17 10:39 01/25/17 10:39 01/25/17 10:39 01/25/17 10:39 - General physical appearance well developed, well nourished, no distress - Eyes normal ocular movement - ENT normal mucosa, atraumatic, normocephalic - Neck trachea midline - Respiratory normal respiratory effort, clear to auscultation - Cardiovascular Cardiovascular exam: Present: RRR, 15, 16 - Abdomen Abdomen general surgery: Present: bowel sounds present, soft, tender (expected post-operative tenderness) - Incision Incision: Present: clean and dry, intact - Integumentary Integumentary general surgery: Present: warm and dry - Neurologic Present: CN 2-12 grossly intact - Musculoskeletal Present: normal gait, normal posture - Psychiatric Psychiatric general surgery: Present: appropriate, oriented to person, oriented to place, oriented to time, speech is normal, memory intact Date of admission: 01/25/17 11:17 Primary care physician: Rose Adams, Consults: 01/26/17 09:40 Consult to Clinical Data Management Manager [CONS] Routine Reason for SW Consult: discharge planning; may require ECF/Rehab 01/26/17 10:14 Consult to Physical Therapy [CONS] Routine Comment: Evaluate, develop and implement POC OT [Consult to Occupational Therapy] [CONS] Routine Comment: Evaluate, develop and implement POC Discharging clinician: Kaleb Meredith ([facility]) Anticipated date of discharge: 01/31/17 - Patient Status Disposition: Home, Self-Care Condition: Good Functional capacity at discharge: independent ambulation Overall status at discharge: patient is progressing back to baseline - Discharge Instructions Follow Up With: Kaleb Meredith MD [Partnered Physician] - 02/06/17 11:00 am NO,PCP [Non-Partnered Physician] - Additional Instructions: Discharge instructions: #1 May shower, no tub bath X 2 weeks #2 Wash incisions with soap and water and pat dry daily #3 No lifting/pushing/pulling greater than 15 lb. for a total of 6 weeks from the date of surgery #4 No driving until off narcotics for 24 hours and able to safely react in the car #5 May climb stairs #6 Smoking cessation - Diet and Activity Activity: other (See additional instructions above) Diet: advance to your usual diet - Hospital Course Hospital course: Ms. Singh is a 56 year old female with a history of a neuroendocrine tumor of the stomach. She is s/p Gastric resection (antrectomy) Billroth I reconstruction with Dr. Meredith. She was maintained on bowel rest with NG tube to LIWS for decompression while awaiting return of bowel function. With return of bowel function, her NG tube was removed and she was started on a limited clear diet. She has slowly been advanced and is currently tolerating a regular diet without nausea/vomiting. Her vital signs are stable and she is afebrile. Her pain is well controlled. She is voiding and ambulating without difficulty. We will begin discharge planning and plan for outpatient follow-up in the next 7- 10 days. - Time Spent with Patient Total time spent providing and/or coordinating discharge services: Less than 30 minutes - Impressions ITS Impressions KUB X-Ray 01/27/17 09:50 IMPRESSION: Mild distention of small bowel which may represent ileus. No gross obstruction. D/ / 01/27/2017 11:19:43 Zonia Subramanian MD / Patsy Thakur Interpreting Provider: Zonia Subramanian MD X-Ray 01/27/17 12:30 IMPRESSION: Nasogastric drain tip projects over the distal esophagus. D/ / Kaushik Walker MD / Kaushik Walker MD Interpreting Provider: Kaushik Walker MD - Attending Attestation I examined this patient and my medical decision-making was reviewed with the MEDICAL LIAISON/PA/Advanced Practice Nurse/Resident Physician. I agree with the documented findings, disposition and treatment plan as described except to the extent set forth below. <Kaleb Meredith - Last Filed: 02/01/17 15:53> Date of Encounter: 01/31/17 - Discharge Diagnosis (1) Neuroendocrine tumor Status: Acute General Surgery Exam Initial Vital Signs Temp Pulse Resp BP Pulse Ox 98.0 F 98 18 162/70 95 01/25/17 10:39 01/25/17 10:39 01/25/17 10:39 01/25/17 10:39 01/25/17 10:39 Date of admission: 01/25/17 11:17 Primary care physician: Rose Adams, Consults: 01/26/17 09:40 Consult to Clinical Data Management Manager [CONS] Routine Reason for SW Consult: discharge planning; may require ECF/Rehab 01/26/17 10:14 Consult to Physical Therapy [CONS] Routine Comment: Evaluate, develop and implement POC OT [Consult to Occupational Therapy] [CONS] Routine Comment: Evaluate, develop and implement POC - Hospital Course Hospital course: Ms. Singh is a 56 year old female - Time Spent with Patient Total time spent providing and/or coordinating discharge services: - Impressions ITS Impressions KUB X-Ray 01/27/17 09:50 IMPRESSION: Mild distention of small bowel which may represent ileus. No gross obstruction. D/ / 01/27/2017 11:19:43 Zonia Subramanian MD / Patsy Thakur Interpreting Provider: Zonia Subramanian MD X-Ray 01/27/17 12:30 IMPRESSION: Nasogastric drain tip projects over the distal esophagus. D/ / Kaushik Walker MD / Kaushik Walker MD Interpreting Provider: Kaushik Walker MD - Attending Attestation The patient was seen and evaluated on morning rounds. She is tolerating diet. We will place her on a trial of regular diet. If she tolerates this she may be discharged home. Kaleb Meredith MD FACS
== END 2017-01-31 13:13 | disposition home or self-care (01) | DRG 328 ==
LOC: SAMDAY 10:22 → 3ANU 11:17
PROVIDERS: ADMIT Surgery; ATTEND Surgery

== ENCOUNTER 2018-04-02 11:33 | Inpatient (IN) ==
[2018-04-02] MEDS ORDERED: Isovue-370 500 ML INFUS..BTL IV ONE (11:39)
--- NOTE | 2018-04-02 12:06 | Emergency Department Note ---
Disposition Clinical Impression: Chest pain of uncertain etiology, Epigastric abdominal pain, Pneumonia Disposition: Admitted As Inpatient Condition: Fair Instructions: Chest Pain (ED) Reasons to Return/Additional Instructions: Please follow-up with your primary care provider oncologist for continuation of your care. Return to the emergency department if you develop any worsening of your condition or if you develop new concerning symptoms. Referrals: Ariel Dawson MD [Primary Care Provider] - Forms: ED Satisfaction Letter Time of Disposition: 15:00 Chest Pain HPI - General Chief Complaint: ED Chest Pain Stated Complaint: chest pain/rosa sent per [facility] Time Seen by Provider: 04/02/18 11:38 Source: patient Mode of arrival: ambulatory Limitations: no limitations Vital Signs Reviewed: Yes Nursing Notes Reviewed: Yes - History of Present Illness HPI Narrative: 57-year-old female presents emergency Department with concerns of chest pain and epigastric abdominal pain intermittently over the past 3 weeks. Patient has a history of gastric cancer although she states she is now cancer free after multiple rounds of radiation. She never to chemotherapy. Patient reports pain is sometimes worse with by mouth intake. She now describes pain in the sternum and bilateral lower chest that is worse with breathing. She was sent to the emergency department by the nurse practitioner oncologist, Fritz Castañeda, to rule out PE and mesenteric ischemia. Patient reports occasional cough but denies productive cough. She denies fever, chills, vomiting, diarrhea , hematochezia, melena. Patient had EGD with Dr. Meredith which was apparently without irregularity. Severity scale (1-10): 8 - Related Data Home Medications Medication Instructions Recorded Confirmed EPINEPHrine [Epipen] 0.3 mg IJ ONCE PRN 05/09/16 04/02/18 Amlodipine Besylate 10 mg PO DAILY PRN 01/25/17 04/02/18 Fluticasone/Salmeterol [Advair 1 each IH BID 01/25/17 04/02/18 250-50 Diskus] Omeprazole [PriLOSEC] 20 mg PO DAILY 01/25/17 04/02/18 Aspirin [Ecotrin] 325 mg PO PRN PRN 01/16/18 04/02/18 OxyCODONE Immed Rel [Roxicodone 10 10 mg PO QID PRN 01/16/18 04/02/18 MG] Previous Rx's Medication Instructions Recorded Budesonide/Formoterol 160/4.5 2 puff IH BIDR #1 inhaler 10/10/16 [Symbicort 160/4.5] Gabapentin [Neurontin] 800 mg PO TID #30 tablet 10/10/16 Montelukast [Singulair] 10 mg PO DAILY PRN #30 tablet 10/10/16 Hydrocortisone 2.5% CREAM [Cortaid] 1 appl TP TID #1 tube 01/16/18 Allergies Allergy/AdvReac Type Severity Reaction Status Date / Time No Known Allergies Allergy Verified 04/02/18 15:10 All systems ED: reviewed and negative except as stated. Review of Systems: As Per HPI Chest Pain PMH - Past Medical History Medical history: Reports: arthritis, cancer, COPD, DVT, GERD, GI bleed, hyperlipidemia, hypertension, TIA Surgical history: Reports: cancer surgery, orthopedic, other Psychiatric history: Reports: anxiety, depression - Social History Smoking Status: Current every day smoker Alcohol use: Reports: none Drug use: Reports: none Physical Exam General: Alert and in no acute distress Skin: Warm, dry, intact Head: Normocephalic and atraumatic Neck: Supple, trachea midline and no tenderness Cardiovascular: RRR, no murmur, normal perfusion Respiratory: CTAB, no wheezing, cough, or respiratory distress Musculoskeletal: Normal strength, no tenderness, swelling or deformity GI: Soft, nontender, nondistended. Bowel sounds present Neuro: A&O to person, place, time and situation. No focal deficits noted on exam Psychiatric: cooperative and appropriate mood and affect. - General Limitations: no limitations General appearance: alert Course Vital Signs Temperature 98.7 F 04/02/18 11:34 Pulse Rate 95 04/02/18 11:34 Respiratory Rate 20 04/02/18 11:34 Blood Pressure 140/75 04/02/18 11:34 O2 Sat by Pulse Oximetry 99 04/02/18 11:34 Temperature 98.7 F 04/02/18 11:34 Pulse Rate 114 04/02/18 14:08 Respiratory Rate 20 04/02/18 14:08 Blood Pressure 160/100 04/02/18 14:08 O2 Sat by Pulse Oximetry 96 04/02/18 14:08 Oxygen Delivery Oxygen Delivery Room Air Chest Pain - MDM Narrative Medical decision making narrative: CT of the chest abdomen pelvis does not show acute mesenteric ischemia, PE or other surgical abnormality. Patient does have what appears to be a possible bilateral pneumonia. She was recently admitted in January. CT also showed irregular nodules of the chest that will need further evaluation for possible malignancy. CT results were discussed with the patient. She is comfortable with the plan for admission to hospital for further care and evaluation. - Medical Records Medical records reviewed: Yes I reviewed the patient's medical records. - Lab Data Lab results reviewed: Yes I reviewed the patient's lab results. Result diagrams: 04/02/18 10:01 04/02/18 10:01 Lab Results 04/02/18 04/02/18 04/02/18 Range/Units 10:01 10:01 10:01 WBC 16.7 H (4.3-11.1) K/mcL RBC 4.13 (3.82-4.97) M/mcL Hgb 11.6 (11.5-15.4) g/dL Hct 36.2 (35.3-44.9) % MCV 87.7 (83.0-100.0) fL MCH 28.1 (28.0-33.3) pg MCHC 32.0 (31.6-35.5) g/dL RDW 17.6 H (11.5-14.5) % Plt Count 449 H (140-400) K/mcL MPV 9.6 (9.4-12.4) fL Immature Gran % 0.4 (0-4) % Seg Neutrophils % 77.1 % Lymphocytes % 12.2 % Monocytes % 9.4 % Eosinophils % 0.4 % Basophils % 0.5 % Neutrophils # 12.9 H (1.6-8.9) K/mcL Lymphocytes # 2.0 (0.6-4.6) K/mcL Monocytes # 1.6 H (0.0-1.3) K/mcL Eosinophils # 0.1 (0.0-0.6) K/mcL Basophils # 0.1 (0.0-0.2) K/mcL PT 13.5 H (9.4-12.1) Seconds INR 1.2 APTT 30.9 (26.0-36.0) Seconds Sodium 135 L (136-145) mEq/L Potassium 3.1 L (3.5-5.1) mEq/L Chloride 100 (98-107) mEq/L Carbon Dioxide 28 (23-29) mEq/L BUN 3 L (6-20) mg/dL Creatinine 0.52 L (0.60-1.20) mg/dL Est GFR ( Amer) > 60 (> 60) Est GFR (Non-Af Amer) > 60 (> 60) BUN/Creatinine Ratio 6 (6-26) Glucose 100 (70-105) mg/dL Calculated Osmolality 277 L (280-300) Lactic Acid (0.5-2.2) mmol/L Calcium 8.8 (8.6-10.3) mg/dL Troponin I < 0.03 (< 0.04) ng/mL 04/02/18 Range/Units 10:01 WBC (4.3-11.1) K/mcL RBC (3.82-4.97) M/mcL Hgb (11.5-15.4) g/dL Hct (35.3-44.9) % MCV (83.0-100.0) fL MCH (28.0-33.3) pg MCHC (31.6-35.5) g/dL RDW (11.5-14.5) % Plt Count (140-400) K/mcL MPV (9.4-12.4) fL Immature Gran % (0-4) % Seg Neutrophils % % Lymphocytes % % Monocytes % % Eosinophils % % Basophils % % Neutrophils # (1.6-8.9) K/mcL Lymphocytes # (0.6-4.6) K/mcL Monocytes # (0.0-1.3) K/mcL Eosinophils # (0.0-0.6) K/mcL Basophils # (0.0-0.2) K/mcL PT (9.4-12.1) Seconds INR APTT (26.0-36.0) Seconds Sodium (136-145) mEq/L Potassium (3.5-5.1) mEq/L Chloride (98-107) mEq/L Carbon Dioxide (23-29) mEq/L BUN (6-20) mg/dL Creatinine (0.60-1.20) mg/dL Est GFR ( Amer) (> 60) Est GFR (Non-Af Amer) (> 60) BUN/Creatinine Ratio (6-26) Glucose (70-105) mg/dL Calculated Osmolality (280-300) Lactic Acid 1.2 (0.5-2.2) mmol/L Calcium (8.6-10.3) mg/dL Troponin I (< 0.04) ng/mL - Radiology Data Radiology results reviewed: Yes I reviewed the patient's radiology results. - EKG Data EKG attestation: Yes I reviewed and interpreted this EKG. EKG results narrative: Normal sinus rhythm with rate of 94 without evidence of STEMI.
[2018-04-02 12:08] LABS: Basophils # 0.1 K/mcL (0.0-0.2); Basophils % 0.5 %; Eosinophils # 0.1 K/mcL (0.0-0.6); Eosinophils % 0.4 %; Hematocrit 36.2 % (35.3-44.9); Hemoglobin 11.6 g/dL (11.5-15.4); Immature Granulocytes % 0.4 % (0-4); Lymphocytes % 12.2 %; Mean Corpuscular Hemoglobin 28.1 pg (28.0-33.3); Mean Corpuscular Volume 87.7 fL (83.0-100.0); Mean Platelet Volume 9.6 fL (9.4-12.4); Monocytes # 1.6 K/mcL (0.0-1.3); Monocytes % 9.4 %; Neutrophils # 12.9 K/mcL (1.6-8.9); Platelet Count 449 K/mcL (140-400); Red Blood Count 4.13 M/mcL (3.82-4.97); Red Cell Distribution Width 17.6 % (11.5-14.5); Segmented Neutrophils % 77.1 %
[2018-04-02 12:17] LABS: INR 1.2; Prothrombin Time 13.5 Seconds (9.4-12.1)
[2018-04-02 12:20] LABS: Activated Partial Thrombo Time 30.9 Seconds (26.0-36.0)
[2018-04-02 12:34] LABS: BUN/Creatinine Ratio 6 (6-26); Blood Urea Nitrogen 3 mg/dL (6-20); Calcium 8.8 mg/dL (8.6-10.3); Carbon Dioxide 28 mEq/L (23-29); Chloride 100 mEq/L (98-107); Glucose 100 mg/dL (70-105); Osmolality,Calculated 277 (280-300); Potassium 3.1 mEq/L (3.5-5.1); Sodium 135 mEq/L (136-145); Troponin I < 0.03 ng/mL (< 0.04); eGFR For African Americans > 60 (> 60); eGFR For Non-African Americans > 60 (> 60)
[2018-04-02] MEDS ORDERED: Aminoglycoside Consult 1 EACH MC ONE (12:39)
[2018-04-02] MEDS ORDERED: Cefepime HCl 2,000 MG in Water for inj. (sterile) 20 ML 20 ML IVP STA (12:56)
[2018-04-02] MEDS ORDERED: Azithromycin 500 MG in D5% in Water 250 ML IVPB STA ×2 (12:56→13:56)
[2018-04-02] MEDS ORDERED: Vancomycin 1,000 MG in D5% in Water 250 ML IVPB ONE (12:56)
[2018-04-02] MEDS ORDERED: *HR* FentaNYL (PF) 100 MCG/2 ML VIAL IVP ONE (13:51)
[2018-04-02] MEDS ORDERED: Naloxone 0.4 MG/ML INJ IVP PRN (15:28)
[2018-04-02] MEDS ORDERED: amLODIPine 5 MG TABLET PO PRN (15:33)
--- NOTE | 2018-04-02 15:35 | Internal Med History&Physical ---
Date of Encounter: 04/02/18 Time of Encounter: 15:32 Internal Medicine - H&P: HPI Chief complaint: Pain and shortness of breath History of present illness: Ms. 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 She had her routine follow-up with oncologist today in the clinic where she reported symptoms of pain along the chest, epigastrium, back described as sharp , burning, tooth pick-liked for the last 2 weeks approximately. Associated with generalized weakness that is progressive and decreased ability to get around the house in the last day or so. Associated with shortness of breath and cough productive of greenish yellow sputum. Reports subjective fevers and chills. Her cancer appears to be treated with observation at this time status post surgery Of note she has a history of left lower extremity DVT and was supposed cancer xarelto. However due to patient perceived side effects she has stopped Xarelto for the last 4-6 months approximately. She was advised by her oncologist to restart Xarelto. 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 No pulmonary embolus. 2. No evidence of acute vascular injury or mesenteric ischemia. 3. Dense consolidation in the left lower lobe with patchy ground-glass opacities elsewhere. Findings are most compatible with infection. 4. Prominent mediastinal and left hilar adenopathy including infiltrating soft tissue. Findings are favored to represent reactive nodes related to underlying infection. Recommend treating the patient and following to resolution to exclude malignancy. 5. Postsurgical changes along the greater curvature of the stomach. No discrete mass of the stomach identified. XR/XR chest 1V portable IMPRESSION: Bilateral lower lobe pneumonia, left greater than right. Follow-up imaging is recommended after treatment to ensure resolution. CT/CT angio chest IMPRESSION: 1. No pulmonary embolus. 2. No evidence of acute vascular injury or mesenteric ischemia. 3. Dense consolidation in the left lower lobe with patchy ground-glass opacities elsewhere. Findings are most compatible with infection. 4. Prominent mediastinal and left hilar adenopathy including infiltrating soft tissue. Findings are favored to represent reactive nodes related to underlying infection. Recommend treating the patient and following to resolution to exclude malignancy. 5. Postsurgical changes along the greater curvature of the stomach. No discrete mass of the stomach identified. Past Med Surg Social Fam HX - Past Medical History Medical history: arthritis, cancer, COPD, DVT, GERD, GI bleed, hyperlipidemia, hypertension, TIA Additional medical history: stomach cancer. neuroenocrine tumor. liver mass. anemia. LLE DVT Psychiatric history: anxiety, depression - Past Surgical History Surgical History: cancer surgery, orthopedic, other Additional surgical history: Billroth I - Social History Smoking Status: Current every day smoker Smokeless Tobacco Status: No Alcohol use: none Drug use: none - Family History Father Living Status: Hx Family Respiratory Disorders: Yes Hx Family Cancer: Yes Mother Hx Family Cardiac Disorders: Yes Internal Medicine - H&P: Meds EPINEPHrine [Epipen] 0.3 mg IJ ONCE PRN 05/09/16 [History] Budesonide/Formoterol 160/4.5 [Symbicort 160/4.5] 2 puff IH BIDR #1 inhaler [Rx] Gabapentin [Neurontin] 800 mg PO TID #30 tablet 10/10/16 [Rx] Montelukast [Singulair] 10 mg PO DAILY PRN #30 tablet 10/10/16 [Rx] Amlodipine Besylate 10 mg PO DAILY PRN 01/25/17 [History] Fluticasone/Salmeterol [Advair 250-50 Diskus] 1 each IH BID 01/25/17 [History] Omeprazole [PriLOSEC] 20 mg PO DAILY 01/25/17 [History] Aspirin [Ecotrin] 325 mg PO PRN PRN 01/16/18 [History] Hydrocortisone 2.5% CREAM [Cortaid] 1 appl TP TID #1 tube 01/16/18 [Rx] OxyCODONE Immed Rel [Roxicodone 10 MG] 10 mg PO QID PRN 01/16/18 [History] 3 Allergy/AdvReac Type Severity Reaction Status Date / Time No Known Allergies Allergy Verified 04/02/18 15:10 All Systems PM: A 10-system review of systems was performed and is negative for pertinent findings except as documented above in the HPI. Review of systems: ROS 14 point review of systems reviewed as best as possible given presentation. Pertinent positive or negative as per HPI or otherwise reviewed as negative - Constitutional Vitals: Temp Pulse Resp BP Pulse Ox 98.7 F 114 20 160/100 96 04/02/18 11:34 04/02/18 14:08 04/02/18 14:08 04/02/18 14:08 04/02/18 14:08 Exam: General - AAO x 3 Psych - Appropriate affect/speech. No agitation Eyes - TR. Eye lids intact. No scleral icterus Neuro - No gross peripheral or central neuro deficits on inspection Heart - Sinus. RRR. S1 and S2 present. No added HS/murmurs appreciated. No elevated JVD appreciated. Lung - Adequate air entry b/l, bibasal crackles, no wheezes appreciated GI - Soft, non-tender. No hepatosplenomegaly/ascites. BS+ - No CVA/suprapubic tenderness or palpable bladder distension Skin - Intact. No rash/petechiae/ecchymosis. Warm extremities MSK - Joints with normal ROM. No joint swellings Internal Med - H&P Results - Labs CBC & Chem 7: 04/02/18 10:01 04/02/18 10:01 Labs: Short CBC 04/02/18 Range/Units 10:01 WBC 16.7 H (4.3-11.1) K/mcL Hgb 11.6 (11.5-15.4) g/dL Hct 36.2 (35.3-44.9) % Plt Count 449 H (140-400) K/mcL Neutrophils # 12.9 H (1.6-8.9) K/mcL BMP 04/02/18 10:01 Sodium 135 L Potassium 3.1 L Chloride 100 Carbon Dioxide 28 BUN 3 L Creatinine 0.52 L Glucose 100 Calcium 8.8 Cardiac Enzymes 04/02/18 Range/Units 10:01 Troponin I < 0.03 (< 0.04) ng/mL - Impressions ITS Impressions Chest CTA 04/02/18 11:39 IMPRESSION: 1. No pulmonary embolus. 2. No evidence of acute vascular injury or mesenteric ischemia. 3. Dense consolidation in the left lower lobe with patchy ground-glass opacities elsewhere. Findings are most compatible with infection. 4. Prominent mediastinal and left hilar adenopathy including infiltrating soft tissue. Findings are favored to represent reactive nodes related to underlying infection. Recommend treating the patient and following to resolution to exclude malignancy. 5. Postsurgical changes along the greater curvature of the stomach. No discrete mass of the stomach identified. D/ / 04/02/2018 14:07:13 Fidelia Lloyd MD / suman Interpreting Provider: Fidelia Lloyd MD Chest X-Ray 04/02/18 11:39 IMPRESSION: Bilateral lower lobe pneumonia, left greater than right. Follow-up imaging is recommended after treatment to ensure resolution. D/ / Mj Plummer MD / Mj Plummer MD Interpreting Provider: Mj Plummer MD Abdomen/Pelvis CTA 04/02/18 11:40 IMPRESSION: 1. No pulmonary embolus. 2. No evidence of acute vascular injury or mesenteric ischemia. 3. Dense consolidation in the left lower lobe with patchy ground-glass opacities elsewhere. Findings are most compatible with infection. 4. Prominent mediastinal and left hilar adenopathy including infiltrating soft tissue. Findings are favored to represent reactive nodes related to underlying infection. Recommend treating the patient and following to resolution to exclude malignancy. 5. Postsurgical changes along the greater curvature of the stomach. No discrete mass of the stomach identified. D/ / 04/02/2018 14:07:13 Fidelia Lloyd MD / suman Interpreting Provider: Fidelia Lloyd MD - Assessment and plan (1) Pneumonia Current Visit: Yes Status: Acute Assessment and plan: Continue hospital-acquired pneumonia coverage while in hospital Send serologies IV fluids with K supplementation May consider de-escalate to community-acquired coverage when improved Qualifiers: Pneumonia type: due to unspecified organism Laterality: left Lung location: lower lobe of lung Qualified Code(s): J18.1 - Lobar pneumonia, unspecified organism (2) Chronic pain Current Visit: No Status: Acute Assessment and plan: Continue oxycodone when necessary with bowel prophylaxis Qualifiers: Chronic pain type: chronic pain syndrome Qualified Code(s): G89.4 - Chronic pain syndrome (3) Left leg DVT Current Visit: No Status: Acute Assessment and plan: Advice by oncology to restart Xarelto This is not an acute clot History of GI bleed reported. 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 continue follow-up oncology outpatient (5) COPD (chronic obstructive pulmonary disease) with chronic bronchitis Current Visit: Yes Status: Acute Assessment and plan: chronic smokes 2 -3 PPD - Time Spent With Patient Total time spent is greater than 50% in coordination of care (as documented) at patient's floor/unit and/or counseling patient:
[2018-04-02] MEDS ORDERED: Sennosides 8.6 MG TABLET PO PRN (15:41)
[2018-04-02] MEDS ORDERED: Vancomycin 0 MG in 0.9 % Sodium Chloride 250 ML IVPB SCH (16:00)
[2018-04-02] MEDS ORDERED: *HR* Rivaroxaban 10 MG TABLET PO SCH (17:00)
[2018-04-02] MEDS: Nicotine 21 MG PATCH.TD24 TD SCH (18:17)
[2018-04-02] MEDS: *HR* OxyCODONE Immed Rel 5 MG TABLET PO PRN (18:17)
[2018-04-02] MEDS: Budesonide/Formoterol 160/4.5 MDI IH SCH (20:05)
[2018-04-02] MEDS ORDERED: NON-FORMULARY MEDICATION 1 EACH EACH (Fluticasone/Salmeterol [Advair 250-50 Diskus] 1 EACH IH SCH (21:00)
[2018-04-02] MEDS ORDERED: Acetaminophen 325 MG TABLET PO PRN (21:04)
[2018-04-02] MEDS: Gabapentin 400 MG CAPSULE PO SCH (21:06)
[2018-04-02] MEDS: 0.9 % Sodium Chloride w KCl 20 MEQ/1,000 ML MLS IVC SCH (21:07)
--- NOTE | 2018-04-02 22:08 | Electrocardiograph Report ---
[facility] [employer] [facility] Test Date: 2018-04-02 Pat Name: Elva Singh Department: 103 Room: 3B66 Gender: F Track Laborer: : 1960 Requested By: Paolo Floyd Order Number: [id number] Reading MD: Raudel Vu Measurements Intervals [place] Rate: 94 P: 32 DC: 124 QRS: 34 QRSD: 77 T: 55 QT: 325 QTc: 377 Interpretive Statements SINUS RHYTHM Electronically Signed On 04-02-2018 22:06:56 EDT by Raudel Vu
[2018-04-03] MEDS: *HR* OxyCODONE Immed Rel 5 MG TABLET PO PRN ×3 (02:26→18:16)
[2018-04-03] MEDS: Cefepime HCl 2,000 MG in Water for inj. (sterile) 20 ML 20 ML IVPB SCH ×2 (03:22→14:45)
[2018-04-03 07:00] LABS: Basophils # 0.1 K/mcL (0.0-0.2); Basophils % 0.5 %; Eosinophils # 0.1 K/mcL (0.0-0.6); Eosinophils % 0.5 %; Hematocrit 30.2 % (35.3-44.9); Immature Granulocytes % 0.5 % (0-4); Mean Corpuscular HGB Conc 32.5 g/dL (31.6-35.5); Mean Corpuscular Hemoglobin 28.7 pg (28.0-33.3); Mean Corpuscular Volume 88.6 fL (83.0-100.0); Mean Platelet Volume 9.8 fL (9.4-12.4); Monocytes # 1.9 K/mcL (0.0-1.3); Monocytes % 14.7 %; Neutrophils # 8.6 K/mcL (1.6-8.9); Platelet Count 350 K/mcL (140-400); Red Blood Count 3.41 M/mcL (3.82-4.97); Red Cell Distribution Width 17.8 % (11.5-14.5); Segmented Neutrophils % 67.8 %
[2018-04-03 07:04] LABS: Hemoglobin 9.8 g/dL (11.5-15.4)
[2018-04-03] MEDS: Budesonide/Formoterol 160/4.5 MDI IH SCH ×2 (08:17→19:50)
[2018-04-03] MEDS: Nicotine 21 MG PATCH.TD24 TD SCH (09:23)
[2018-04-03] MEDS: 0.9 % Sodium Chloride w KCl 20 MEQ/1,000 ML MLS IVC SCH (09:24)
[2018-04-03] MEDS: Azithromycin 500 MG in D5% in Water 250 ML IVPB SCH (09:25)
[2018-04-03] MEDS: Gabapentin 400 MG CAPSULE PO SCH ×3 (09:29→21:25)
[2018-04-03 09:50] LABS: BUN/Creatinine Ratio 10 (6-26); Blood Urea Nitrogen 5 mg/dL (6-20); Calcium 8.2 mg/dL (8.6-10.3); Carbon Dioxide 27 mEq/L (23-29); Chloride 108 mEq/L (98-107); Glucose 111 mg/dL (70-105); Magnesium 2.2 mg/dL (1.6-2.6); Osmolality,Calculated 282 (280-300); Potassium 4.4 mEq/L (3.5-5.1); Sodium 137 mEq/L (136-145); eGFR For African Americans > 60 (> 60); eGFR For Non-African Americans > 60 (> 60)
--- NOTE | 2018-04-03 12:44 | Internal Med Progress Note ---
Date of Encounter: 04/03/18 Time of Encounter: 12:44 - Assessment and plan (1) Pneumonia Current Visit: Yes Status: Acute Assessment and plan: chest wall pain, shortness of breath and nonproductive cough CXR reveals B/L lower lobe PNA left greater than right CTA chest negative for PE. Dense consolidation is seen in LLL with small effusion. Patchy ground-glass seen B/L throughout Streptococcus pneumoniae positive Currently on macrolide and cephalosporin coverage. Continue these ABX Currently on room air without respiratory distress Remains afebrile, no tachycardia, WBC improving today at 12.7 Continue respiratory support with O2 supplementation PRN; maintain spo2 >92% check labs daily Qualifiers: Pneumonia type: due to unspecified organism Laterality: left Lung location: lower lobe of lung Qualified Code(s): J18.1 - Lobar pneumonia, unspecified organism (2) Neuroendocrine tumor Current Visit: No Status: Acute Assessment and plan: H/O grade 2 neuroendocrine tumor; gastric carcinoma follows with [place] oncology CT abdomen and pelvis 01/31/18 with no evidence for recurrence of metastatic disease continue follow-up oncology outpatient (3) Chronic pain Current Visit: No Status: Acute Assessment and plan: Continue current pain medication regimen Qualifiers: Chronic pain type: chronic pain syndrome Qualified Code(s): G89.4 - Chronic pain syndrome (4) Left leg DVT Current Visit: No Status: Acute Assessment and plan: Initially advised by oncology to restart Xarelto This is not an acute clot History of GI bleed reported. 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 No acute changes overnight. Patient reports that she is no longer having chest wall pain,or epigastric pain. Shortness of breath has improved. Continuing to have nonproductive cough , subjective fevers and chills. - Constitutional Vitals: Temp Pulse Resp BP Pulse Ox 98 F 90 17 98/61 96 04/03/18 11:07 04/03/18 11:07 04/03/18 11:07 04/03/18 11:07 04/03/18 11:07 - Head Head exam: Present: atraumatic, normocephalic - Eye Eye exam: Present: PERRL, conjuntiva pink, sclera anicteric Pupils: Present: PERRL - Neck Neck exam general surgery: Present: supple, trachea midline. Absent: lymphadenopathy - Respiratory Respiratory exam: Present: CTAB, rhonchi (Right lower lobe). Absent: accessory muscle use, rales, wheezes - Cardiovascular Cardiovascular exam: Present: RRR, +S1, +S2. Absent: diastolic murmur, gallop, rubs, systolic murmur - GI/Abdominal GI/Abdominal exam: Present: normal bowel sounds, soft, no peritoneal signs. Absent: distended, tenderness - Extremities Exam Extremities exam: Present: warm, radial pulses palpable and symmetrical. Absent : calf tenderness, cyanotic, pedal edema - Neurological Exam Neurological exam: Present: CN II-XII intact, oriented X3, no focal deficits. Absent: pronater drift, facial droop, speech deficit - Skin Skin exam: Present: dry, intact Internal Medicine: Result - Labs CBC & Chem 7: 04/03/18 06:41 04/03/18 06:41 Labs: Short CBC 04/03/18 Range/Units 06:41 WBC 12.7 H (4.3-11.1) K/mcL Hgb 9.8 L D (11.5-15.4) g/dL Hct 30.2 L (35.3-44.9) % Plt Count 350 (140-400) K/mcL Neutrophils # 8.6 (1.6-8.9) K/mcL BMP 04/03/18 06:41 Sodium 137 Potassium 4.4 D Chloride 108 H Carbon Dioxide 27 BUN 5 L Creatinine 0.52 L Glucose 111 H Calcium 8.2 L - ABG Interpretation ABG results: PT/INR, D-dimer PT 13.5 Seconds (9.4-12.1) H 04/02/18 10:01 Consult Discharge Plan - Plan Referrals: Ariel Dawson MD [Primary Care Provider] -
[2018-04-03 19:15] LABS: Hematocrit 33.1 % (35.3-44.9); Hemoglobin 10.7 g/dL (11.5-15.4)
[2018-04-04] MEDS: *HR* OxyCODONE Immed Rel 5 MG TABLET PO PRN ×2 (02:15→08:44)
[2018-04-04] MEDS: Cefepime HCl 2,000 MG in Water for inj. (sterile) 20 ML 20 ML IVPB SCH (02:16)
[2018-04-04 05:58] LABS: Basophils # 0.1 K/mcL (0.0-0.2); Basophils % 0.6 %; Eosinophils # 0.2 K/mcL (0.0-0.6); Eosinophils % 1.6 %; Hematocrit 29.8 % (35.3-44.9); Hemoglobin 9.4 g/dL (11.5-15.4); Immature Granulocytes % 0.4 % (0-4); Lymphocytes # 1.9 K/mcL (0.6-4.6); Mean Corpuscular HGB Conc 31.5 g/dL (31.6-35.5); Mean Corpuscular Hemoglobin 27.6 pg (28.0-33.3); Mean Corpuscular Volume 87.4 fL (83.0-100.0); Monocytes # 1.4 K/mcL (0.0-1.3); Monocytes % 13.6 %; Neutrophils # 6.6 K/mcL (1.6-8.9); Platelet Count 364 K/mcL (140-400); Red Blood Count 3.41 M/mcL (3.82-4.97); Segmented Neutrophils % 64.8 %
[2018-04-04 06:12] LABS: BUN/Creatinine Ratio 9 (6-26); Blood Urea Nitrogen 5 mg/dL (6-20); Calcium 8.3 mg/dL (8.6-10.3); Carbon Dioxide 27 mEq/L (23-29); Chloride 105 mEq/L (98-107); Glucose 132 mg/dL (70-105); Magnesium 1.9 mg/dL (1.6-2.6); Osmolality,Calculated 281 (280-300); Potassium 4.8 mEq/L (3.5-5.1); Sodium 136 mEq/L (136-145); eGFR For African Americans > 60 (> 60); eGFR For Non-African Americans > 60 (> 60)
[2018-04-04] MEDS: Budesonide/Formoterol 160/4.5 MDI IH SCH (07:26)
[2018-04-04 08:02] VITALS: BP 111/69
[2018-04-04] MEDS: Nicotine 21 MG PATCH.TD24 TD SCH (08:41)
[2018-04-04] MEDS: Azithromycin 500 MG in D5% in Water 250 ML IVPB SCH (08:43)
[2018-04-04] MEDS: Gabapentin 400 MG CAPSULE PO SCH (08:43)
[2018-04-04] MEDS ORDERED: levoFLOXacin 750 MG TABLET PO ONE (11:11)
--- NOTE | 2018-04-04 11:11 | Discharge Summary ---
- NOTES TO OUTPATIENT PROVIDER Notes to Outpatient Provider: Patient being treated for streptococcus pneumoniae PNA. Improving. Instructed to f/u with PCP in 1-week of d/c Orders not resulted at time of discharge: Pending orders 04/03/18 16:22 Occult Blood,Stool [BF] Routine Date of Encounter: 04/04/18 Time of Encounter: 11:11 - Discharge Diagnosis (1) Pneumonia Priority: Primary Status: Acute Assessment and Plan: Presented with chest wall pain, shortness of breath and nonproductive cough CXR reveals B/L lower lobe PNA left greater than right CTA chest negative for PE. Dense consolidation is seen in LLL with small effusion. Patchy ground-glass seen B/L throughout Streptococcus pneumoniae positive Taking oral Levaquin, needs 8 more doses of daily ABX Currently on room air without respiratory distress, lungs clear Remains afebrile, no tachycardia, WBC improving today at 10.2 uneventful hospital course. Instructed to f/u with PCP in 1-week of d/c. also, instructed to return to ED should fever or dyspnea return. Verbalizes understanding and denies any further questions Qualifiers: Pneumonia type: due to unspecified organism Laterality: left Lung location: lower lobe of lung Qualified Code(s): J18.1 - Lobar pneumonia, unspecified organism (2) Neuroendocrine tumor Priority: Secondary Status: Acute Assessment and Plan: H/O grade 2 neuroendocrine tumor; gastric carcinoma follows with [place] oncology CT abdomen and pelvis 01/31/18 with no evidence for recurrence of metastatic disease continue follow-up oncology outpatient (3) Chronic pain Priority: Secondary Status: Acute Assessment and Plan: Continue current pain medication regimen Qualifiers: Chronic pain type: chronic pain syndrome Qualified Code(s): G89.4 - Chronic pain syndrome (4) Left leg DVT Priority: Secondary Status: Acute Assessment and Plan: Initially advised by oncology to restart Xarelto This is not an acute clot History of GI bleed reported. 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 Sinhg is a 57 year old female Please see assessment and plan for hospital course Discharge discussed with: patient, family, nurse - Time Spent with Patient Total time spent providing and/or coordinating discharge services: Less than 30 minutes - Discharge Medications Prescriptions: Levofloxacin [Levaquin] 750 mg PO DAILY 8 Days #8 tablet Home Medications: EPINEPHrine [Epipen] 0.3 mg IJ ONCE PRN 05/09/16 [History] Budesonide/Formoterol 160/4.5 [Symbicort 160/4.5] 2 puff IH BIDR #1 inhaler [Rx] Gabapentin [Neurontin] 800 mg PO TID #30 tablet 10/10/16 [Rx] Montelukast [Singulair] 10 mg PO DAILY PRN #30 tablet 10/10/16 [Rx] Amlodipine Besylate 10 mg PO DAILY PRN 01/25/17 [History] Fluticasone/Salmeterol [Advair 250-50 Diskus] 1 each IH BID 01/25/17 [History] Omeprazole [PriLOSEC] 20 mg PO DAILY 01/25/17 [History] Aspirin [Ecotrin] 325 mg PO PRN PRN 01/16/18 [History] Hydrocortisone 2.5% CREAM [Cortaid] 1 appl TP TID #1 tube 01/16/18 [Rx] OxyCODONE Immed Rel [Roxicodone 10 MG] 10 mg PO QID PRN 01/16/18 [History] Levofloxacin [Levaquin] 750 mg PO DAILY 8 Days #8 tablet 04/04/18 [Rx] Allergies/Adverse Reactions: 3 Allergy/AdvReac Type Severity Reaction Status Date / Time No Known Allergies Allergy Verified 04/02/18 15:10 Date of admission: 04/02/18 19:28 Primary care physician: Ariel Dawson MD Consults: 04/03/18 09:51 Consult to Nurse Navigator [CONS] Routine Comment: PNEUMONIA, COPD Discharging clinician: Laron Anderson Anticipated date of discharge: 04/04/18 - Constitutional Vitals: Temp Pulse Resp BP Pulse Ox 98.1 F 99 18 111/69 95 04/04/18 08:01 04/04/18 08:01 04/04/18 08:01 04/04/18 08:01 04/04/18 08:01 - Head Head exam: Present: atraumatic, normocephalic - Eye Eye exam: Present: PERRL, conjuntiva pink, sclera anicteric Pupils: Present: PERRL - Neck Neck exam general surgery: Present: supple, trachea midline. Absent: lymphadenopathy - Respiratory Respiratory exam: Present: CTAB. Absent: accessory muscle use, rales, rhonchi, wheezes - Cardiovascular Cardiovascular exam: Present: RRR, +S1, +S2. Absent: diastolic murmur, gallop, rubs, systolic murmur - GI/Abdominal GI/Abdominal exam: Present: normal bowel sounds, soft, no peritoneal signs. Absent: distended, tenderness - Extremities Exam Extremities exam: Present: warm, radial pulses palpable and symmetrical. Absent : calf tenderness, cyanotic, pedal edema - Neurological Exam Neurological exam: Present: CN II-XII intact, oriented X3, no focal deficits. Absent: pronater drift, facial droop, speech deficit - Skin Skin exam: Present: dry, intact - Patient Status Disposition: Home, Self-Care Condition: Fair Functional capacity at discharge: independent ambulation Overall status at discharge: patient is progressing back to baseline - Discharge Instructions Instructions: Pneumonia (DC) Follow Up With: Ariel Dawson MD [Primary Care Provider] - - Diet and Activity Activity: increase activity as tolerated, resume usual activities as tolerated Diet: advance to your usual diet
[2018-04-08 08:33] LABS: Mycoplasma pneumoniae IgG 0.14 U/L (<=0.09)
== END 2018-04-04 12:40 | disposition home or self-care (01) | DRG 194 ==
LOC: EMEROO 11:33 → 3BNU 11:33
PROVIDERS: ADMIT Internal Medicine Hematology & Oncology; ATTEND Family Medicine